=== PATIENT | male | born 1955 | race Caucasian/White ===

== ENCOUNTER 2021-07-18 13:10 | Day surgery (SDC) | payer OTHER ==
[2021-07-18] MEDS ORDERED: LIDOCAINE HCL 2% 100 MG/5 ML IJ ONE (13:11)
[2021-07-18] MEDS ORDERED: Versed 2 MG/2 ML Injection ONE (13:59)
[2021-07-18] MEDS ORDERED: Lactated Ringers 1,000 ML IV ONE (14:57)
[2021-07-18] MEDS ORDERED: DIPRIVAN 200 MG/20 ML IV ONE (14:58)
--- NOTE | 2021-07-18 16:59 | XRAY ---
Indication: Bilateral L4-S1 MBB. Intraoperative fluoroscopy provided for 7 seconds. Single digital spot image submitted for interpretation demonstrates posterior needle tips projecting over the expected left and right L4-S1 nerve roots. Correlate with intraoperative findings/report. Incidental partially visualized right common iliac stent graft.
--- NOTE | 2021-07-18 17:15 | XRAY ---
7 seconds of fluoroscopy was used in surgery for a bilateral L4-S1 MBB.
== END 2021-07-18 15:25 | disposition home or self-care (01) ==
LOC: SDC-PAIN 13:10
PROVIDERS: ATTEND Psychiatry & Neurology Pain Medicine
DX: M47.816 Spondylosis without myelopathy or radiculopathy, lumbar region (principal); J44.9 Chronic obstructive pulmonary disease, unspecified; E78.5 Hyperlipidemia, unspecified; I10 Essential (primary) hypertension; D64.9 Anemia, unspecified; Z79.899 Other long term (current) drug therapy
CPT/HCPCS: 64493; 64494; 72020; 77002; J2250; J2704

== ENCOUNTER 2021-07-25 06:55 | Day surgery (SDC) | payer OTHER, MEDICARE ==
[2021-07-25] MEDS ORDERED: Xylocaine 1% Vial 30 ML PF IJ ONE (06:56)
[2021-07-25] MEDS ORDERED: Depo-Medrol 40 MG/ML IM ONE (06:56)
[2021-07-25] MEDS ORDERED: BUPIVACAINE 0.5% VIAL IJ ONE (06:56)
[2021-07-25] MEDS ORDERED: DIPRIVAN 200 MG/20 ML IV ONE (08:20)
[2021-07-25] MEDS ORDERED: Ketamine HCl 50 MG/ML ONE (08:25)
[2021-07-25] MEDS ORDERED: TORAdol 30 mg Injection ONE (08:43)
[2021-07-25] MEDS ORDERED: Lactated Ringers 1,000 ML IV ONE (08:43)
--- NOTE | 2021-07-25 10:33 | XRAY ---
Indication: Bilateral L4-S1 RFA. Intraoperative fluoroscopy provided for 36 seconds. 6 digital spot image submitted for interpretation demonstrates posterior needle tips projecting over the expected left and right L4-S1 nerve roots. Correlate with intraoperative findings/report. Incidental right common iliac artery stent graft.
--- NOTE | 2021-07-25 10:59 | XRAY ---
36 seconds fluoroscopy time in surgery for bilateral L4-S1 RFA.
== END 2021-07-25 09:02 | disposition home or self-care (01) ==
LOC: SDC-PAIN 06:55
PROVIDERS: ATTEND Psychiatry & Neurology Pain Medicine
DX: M47.816 Spondylosis without myelopathy or radiculopathy, lumbar region (principal); I10 Essential (primary) hypertension; D64.9 Anemia, unspecified; Z79.899 Other long term (current) drug therapy
CPT/HCPCS: 64635; 64636; 72100; 77002; J1030; J1885; J2001; J2704